=== PATIENT | male | born 1940 | race Caucasian/White ===

== ENCOUNTER → 2017-05-16 | Day surgery (SDC) | payer MEDICARE, BC ==
[~2017-05-16] MED LIST: ACCUPRIL PO; ADVAIR 2501 DISK W/D PO; AL-MAG HYDROX-S30 M1 PO; ASPIRIN PO; ASPIRIN81 M2 PO; ASPIRIN81 MG PO; ATENOLOL PO; BAYER ASPIRIN325 M1 PO; CLOPIDOGREL75 MG PO; DULERA 200 MCG/13 GM INH; FISH OIL 1,0001 CAP PO; GLUCOTROL PO; GLUCOTROL10 MG PO; LEVOTHYROXINE100 MC1 PO; LIPITOR PO; LIPITOR80 MG PO; METOPROLOL TAR25 MG PO; PIOGLITAZONE30 MG PO; PRINIVIL40 MG PO; SYNTHROID PO; SYNTHROID0.1 MG PO; TRIAMCINOLONE AC1 GM EXT; TYLENOL325 M1 PO; ZETIA PO
--- NOTE | ~2017-05-16 | OR ---
Unit #: [id number] #: [id number] Patient: GEORGE RAY [id number] [address] [place], [place] [address] [id number] O MR#: [id number] NAME: GEORGE RAY. ROOM: Date of Procedure: 05/16/2017 Admission Date: 05/16/2017 Surgeon: Chuck Smiley M.D. : 1940 Attending Physician: Chuck Smiley M.D. Referring Physician: Chuck Smiley M.D. Primary Care Physician: Chinedu Noel M.D. OPERATIVE REPORT PREOPERATIVE DIAGNOSES Back pain, radiculopathy, degenerative lumbar disk disease. POSTOPERATIVE DIAGNOSIS Back pain, radiculopathy, degenerative lumbar disk disease. PROCEDURE PERFORMED Lumbar epidural steroid injection with intravenous sedation and fluoroscopic guidance for needle localization. INDICATIONS FOR PROCEDURE The patient is a 76-year-old male with 2-year history of worsening left-sided low back, buttock, hip, and lower extremity pain to his foot. He is not settle with conservative measures. Workup demonstrated multilevel multifactorial degenerative change at the L3-L4 level down to the L5-S1 level. There is no surgical pathology. The symptom complex is consistent with radiculitis. Based on history, pathology, symptomatology, and treatment options, plan is for trial of epidural steroids. Risks and benefits of all have been reviewed. DESCRIPTION OF PROCEDURE The patient was placed in a seated position. Standard monitors were applied. 1 mg of Versed was given for sedation and anxiolysis, which was adequate. Vital signs remained stable. Sterile prep and drape then of the lumbar area was performed. The skin then at the L5 level was localized with 1% lidocaine. An 18-gauge bfinance UKtead needle was then advanced via loss of resistance technique and fluoroscopic guidance in toward the epidural space. After confirming proper positioning with fluoroscopy and radiographic contrast, 80 mg of Depo-Medrol and 4 mL of 0.125% bupivacaine were deposited. The patient tolerated the procedure otherwise well and was discharged to the recovery room in stable condition. Dictated by... Hardeep KhanP/miraclel TD: 05/16/2017 18:16 JOB #: [id number] Unit #: [id number] #: [id number] Patient: CORYGEORGE Cardoso OPERATIVE REPORT Page 1 of 1 X Chuck Smiley MD X PROCEDURE OPERATIVE NOTE
== END | disposition home or self-care (01) ==
LOC: CCSC 07:30
DX: M51.16 Intervertebral disc disorders with radiculopathy, lumbar region (principal); M51.17 Intervertebral disc disorders with radiculopathy, lumbosacral region; M47.26 Other spondylosis with radiculopathy, lumbar region; I71.4 Abdominal aortic aneurysm, without rupture; J44.9 Chronic obstructive pulmonary disease, unspecified; K21.9 Gastro-esophageal reflux disease without esophagitis; E11.9 Type 2 diabetes mellitus without complications; Z79.84 Long term (current) use of oral hypoglycemic drugs; F32.9 Major depressive disorder, single episode, unspecified; Z79.899 Other long term (current) drug therapy; Z86.73 Personal history of transient ischemic attack (TIA), and cerebral infarction without residual deficits; I25.2 Old myocardial infarction
CPT/HCPCS: 82947; J1040; J2250

== ENCOUNTER → 2017-05-23 | Day surgery (SDC) | payer MEDICARE, BC ==
--- NOTE | ~2017-05-23 | OR ---
Unit #: [id number] #: [id number] Patient: GEORGE RAY [id number] [address] [address] [id number] O MR#: [id number] NAME: GEORGE RAY ROOM: Date of Procedure: 05/23/2017 Admission Date: 05/23/2017 Surgeon: Chuck Smiley M.D. : 1940 Attending Physician: Chuck Smiley M.D. Primary Care Physician: Chinedu Noel M.D. OPERATIVE REPORT JOB NOTE: CC: [facility] PREOPERATIVE DIAGNOSES Radiculopathy, back pain, degenerative disk disease. POSTOPERATIVE DIAGNOSES Radiculopathy, back pain, degenerative disk disease. PROCEDURE PERFORMED Lumbar epidural steroid injection with intravenous sedation and fluoroscopic guidance for needle localization. INDICATIONS FOR PROCEDURE This is a 76-year-old male, who presented with a 2-year history of worsening left lower extremity greater than low back pain due to nonsurgical multilevel degenerative disk and spine disease. He failed to settle with conservative treatment. Decision was made to give a trial of an epidural steroid injection. Initial injection resulted in 60% to 75% settling of the symptom complex. No complications. Based on a good response, his pathology, and symptomatology, we are going to proceed with a repeat injection today. DESCRIPTION OF PROCEDURE The patient was placed in a seated position. Standard monitors were applied. 1 mg Versed was given for sedation and anxiolysis, which were adequate. Vital signs remained stable. Sterile prep and drape then of lumbar area was performed. The skin at the L5 level was localized with 1% lidocaine. An 18-gauge [employer] needle was then advanced via loss of resistance technique and fluoroscopic guidance in toward the epidural space. After confirming proper positioning with fluoroscopy and radiographic contrast, 80 mg of Depo-Medrol and 4 mL of 0.125% bupivacaine were deposited. The patient tolerated the procedure otherwise well and was discharged to the recovery room in stable condition. Dictated by... Chuck Smiley M.D. LHP/modl TD: 05/23/2017 11:39 Unit #: [id number] #: [id number] Patient: GEORGE RAY JOB #: [id number] OPERATIVE REPORT Page 1 of 1 X Chuck Smiley MD X PROCEDURE OPERATIVE NOTE
== END | disposition home or self-care (01) ==
LOC: CCSC 10:00
DX: M51.16 Intervertebral disc disorders with radiculopathy, lumbar region (principal); I25.10 Atherosclerotic heart disease of native coronary artery without angina pectoris; I25.2 Old myocardial infarction; E11.9 Type 2 diabetes mellitus without complications; J44.9 Chronic obstructive pulmonary disease, unspecified; K21.9 Gastro-esophageal reflux disease without esophagitis; M19.90 Unspecified osteoarthritis, unspecified site; F32.9 Major depressive disorder, single episode, unspecified; Z86.73 Personal history of transient ischemic attack (TIA), and cerebral infarction without residual deficits
CPT/HCPCS: 82947; J1040; J2250

== ENCOUNTER → 2017-05-30 | Day surgery (SDC) | payer MEDICARE, BC ==
--- NOTE | ~2017-05-30 | OR ---
Unit #: [id number] #: [id number] Patient: GEORGE RAY [id number] [address] [place], [place] [address] [id number] O MR#: [id number] NAME: GEORGE RAY. ROOM: Date of Procedure: 05/30/2017 Admission Date: 05/30/2017 Surgeon: Chuck Smiley M.D. : 1940 Attending Physician: Chuck Smiley M.D. Primary Care Physician: Chinedu Noel M.D. OPERATIVE REPORT PREOPERATIVE DIAGNOSES Back pain, radiculopathy, degenerative lumbar disk disease. POSTOPERATIVE DIAGNOSES Back pain, radiculopathy, degenerative lumbar disk disease. PROCEDURE PERFORMED Lumbar epidural steroid injection with intravenous sedation and fluoroscopic guidance for needle localization. INDICATIONS FOR PROCEDURE The patient is a 76-year-old male, who presented with 2-year history of worsening left lower extremity greater than low back pain, did not settle with conservative treatment. Workup showed degenerative disk disease from L3 through S1, some mild facet disease with neuroforaminal stenosis. Decision was made to give a trial of epidural steroids. Two were done to this point, again significant overall improvement in his symptom complex. He had one bad day overall, but overall was doing much better and is much more active. He does pace poorly. Based on his good additive response, we are going to proceed with a final injection today. The patient likely require treatment sometime in the future, may well do a final with single injection in the future. DESCRIPTION OF PROCEDURE The patient was placed in a seated position. Standard monitors were applied. 1 mg Versed was given for sedation and anxiolysis, which was adequate. Vital signs remained stable. Sterile prep and drape then of lumbar area was performed. The skin then at the L5-S1 level was localized with 1% lidocaine. An 18-gauge [employer] needle was then advanced via loss of resistance technique and fluoroscopic guidance in toward the epidural space. After confirming proper positioning with fluoroscopy and radiographic contrast, 80 mg of Depo-Medrol and 4 mL of 0.125% bupivacaine were deposited. The patient tolerated the procedure otherwise well and was discharged to the recovery room in stable condition. Dictated by... Chuck Smiley M.D. LHJacqui/axel TD: 05/30/2017 14:30 Unit #: [id number] #: [id number] Patient: GEORGE RAY JOB #: [id number] OPERATIVE REPORT Page 1 of 1 X Chuck Smiley MD X PROCEDURE OPERATIVE NOTE
== END | disposition home or self-care (01) ==
LOC: CCSC 09:46
DX: M51.16 Intervertebral disc disorders with radiculopathy, lumbar region (principal); E11.9 Type 2 diabetes mellitus without complications; K21.9 Gastro-esophageal reflux disease without esophagitis; I25.10 Atherosclerotic heart disease of native coronary artery without angina pectoris; J44.9 Chronic obstructive pulmonary disease, unspecified; M19.90 Unspecified osteoarthritis, unspecified site
CPT/HCPCS: 82947; J1040; J2250